=== PATIENT | male | born 1955 | race Caucasian/White ===

== ENCOUNTER 2016-12-14 15:52 | Inpatient (IN) | payer OTHER ==
[2016-12-14 16:04] VITALS: BMI 26.4
[2016-12-14] MEDS ORDERED: ONDANSETRON 4 MG/2 ML VIAL IVPB ONE (16:55)
[2016-12-14] MEDS ORDERED: SODIUM CHLORIDE 0.9% 1000 ML INFUS.BAG IV ONE (16:55)
[2016-12-14] MEDS ORDERED: morphine CARPU-JECT 4 MG/1 ML DISP.SYRIN ONE (17:18)
[2016-12-14] MEDS ORDERED: ONDANSETRON 4 MG/2 ML VIAL ONE (17:26)
[2016-12-14] MEDS: morphine CARPU-JECT 4 MG/1 ML DISP.SYRIN IVPUSH ONE ×2 (17:32→21:48)
[2016-12-14 17:35] LABS: MCH 31.1 pg (25.7-33.7); MCHC 34.7 g/dl (32.0-35.9); MEAN CELL VOLUME 89.5 fl (80-96); MEAN PLT VOLUME 8.4 fl (7.5-11.1); PLATELET COUNT 270 K/MM3 (134-434); WHITE BLOOD COUNT 7.4 K/mm3 (4.0-10.0)
[2016-12-14 17:50] LABS: INR 1.09 (0.82-1.09)
--- NOTE | 2016-12-14 18:08 | PDOC ---
[id number] [id number] LOWER BACK PAIN Time Seen by Provider: 12/14/16 16:21 History Source: Patient, [employer] Used (Suresh [id number]) Exam Limitations: Language Barrier - History of Present Illness Initial Comments: 12/14/16 18:01 61 yr male history of CAD with stent placed 2003 presents to ER with low back pain radiates to flank, lower abdomen both sides for 3 days getting worse. Pain worse with walking, movement, stabbing pain. denies fever, denies saddle anesthesia, denies urine or bowel dysfunction. Severity: reports: moderate Pain Location: reports: back Past History - Past Medical History Allergies/Adverse Reactions: Allergies Allergy/AdvReac Type Severity Reaction Status Date / Time Penicillins Allergy Verified 12/14/16 16:04 Kidney Stones: Yes Other medical history: DENIES - Surgical History Cardiac Surgery: Yes (CATH) - Psycho/Social/Smoking Cessation Hx Anxiety: No Suicidal Ideation: No Smoking History: Never smoked Have you smoked in the past 12 months: No Information on smoking cessation initiated: No Hx Alcohol Use: No Drug/Substance Use Hx: No Substance Use Type: None *Physical Exam - Vital Signs Last Vital Signs Temp Pulse Resp BP Pulse Ox 98.2 F 74 20 128/85 98 12/14/16 15:55 12/14/16 15:55 12/14/16 15:55 12/14/16 15:55 12/14/16 15:55 - Physical Exam General Appearance: Yes: Nourished, Appropriately Dressed, Mild Distress HEENT: positive: EOMI, ZAKIYA, Normal ENT Inspection, TMs Normal, Pharynx Normal Neck: positive: Supple. negative: Tender Respiratory/Chest: positive: Chest Tender, Lungs Clear, Normal Breath Sounds Cardiovascular: positive: Regular Rhythm, Regular Rate Gastrointestinal/Abdominal: positive: Normal Bowel Sounds, Soft Musculoskeletal: positive: Normal Inspection, Other. negative: CVA Tenderness ( R) Extremity: positive: Normal Capillary Refill, Normal Inspection, Normal Range of Motion, Other (bilateral low back pain with straight leg raise ) Integumentary: positive: Normal Color, Dry, Warm Neurologic: positive: Fully Oriented, Alert, Normal Mood/Affect, Normal Response , Motor Strength 5/5 ED Treatment Course - LABORATORY CBC & Chemistry Diagram: 12/15/16 05:36 12/16/16 05:55 - ADDITIONAL ORDERS Additional order review: Laboratory Results 12/14/16 12/14/16 17:00 17:00 INR 1.09 Sodium Cancelled Potassium Cancelled Chloride Cancelled Carbon Dioxide Cancelled Anion Gap Cancelled BUN Cancelled Creatinine Cancelled Creat Clearance w eGFR Cancelled Random Glucose Cancelled Calcium Cancelled Total Bilirubin Cancelled AST Cancelled ALT Cancelled Alkaline Phosphatase Cancelled Total Protein Cancelled Albumin Cancelled 12/14/16 17:00 RBC 4.86 MCV 89.5 MCHC 34.7 RDW 13.0 MPV 8.4 - RADIOLOGY Radiology Studies Ordered: Category Date Time Status ABDOMEN & PELVIS CT W/O CONTR [CT] Stat CT Scan 12/14/16 17:01 Taken - Medications Given in the ED: ED Medications Discontinued Medications Generic Name Dose Route Start Last Admin Trade Name Freq PRN Reason Stop Dose Admin Ondansetron HCl 4 mg 12/14/16 16:55 12/14/16 17:31 Zofran Injection IVPB 12/14/16 16:56 4 mg ONCE ONE Administration Sodium Chloride 1,000 ml 12/14/16 16:55 12/14/16 17:30 Normal Saline - IV 12/14/16 16:56 1,000 ml ONCE ONE Administration Medical Decision Making - Medical Decision Making 12/14/16 18:51 cc: low back pain radiates to bilateral flank and lower abdomen will r/o AAA, kidney stone, pyleo, muscle spasm, muscle strain labs, CT without contrast, IV morphine, fluids, will hold on toradol for CT result 12/14/16 19:39 pt began to c/o LSCP pressure after troadol was given. EKG done shown to discussed case and will assume care in the Main ER. Pt aware of the plan. Charge nurse Saji aware and pt is going to bed 2. 12/14/16 20:34 *DC/Admit/Observation/Transfer Diagnosis at time of Disposition: Acute coronary syndrome - Discharge Dispostion Admit: Yes - Referrals
[2016-12-14 18:39] LABS: MCH 30.3 pg (25.7-33.7); MCHC 33.7 g/dl (32.0-35.9); MEAN CELL VOLUME 89.8 fl (80-96); MEAN PLT VOLUME 8.2 fl (7.5-11.1); PLATELET COUNT 263 K/MM3 (134-434); RDW 13.2 % (11.9-15.9)
[2016-12-14] MEDS ORDERED: KETOROLAC TROMETHAMINE 30 MG/1 ML VIAL IVPUSH ONE (18:40)
[2016-12-14 18:52] LABS: INR 1.12 (0.82-1.09); PROTHROMBIN TIME (PATIENT) 12.4 SEC (9.98-11.88)
[2016-12-14 19:03] LABS: ALBUMIN 3.8 g/dl (3.4-5.0); ALK PHOS 100 U/L (45-117); ANION GAP 9 (8-16); BILIRUBIN,TOTAL 0.3 mg/dL (0.2-1.0); CALCIUM 8.7 mg/dL (8.5-10.1); CO2 25 mmol/L (21-32); CREATININE 0.8 mg/dL (0.7-1.3); GLUCOSE,RANDOM 91 mg/dL (74-106); SGOT/AST 23 U/L (15-37); TOT PROT 6.5 g/dl (6.4-8.2); TROPONIN I 0.09 ng/ml (0.00-0.05)
[2016-12-14 19:08] LABS: SGPT/ALT 24 U/L (12-78)
[2016-12-14] MEDS ORDERED: KETOROLAC TROMETHAMINE 30 MG/1 ML VIAL ONE (19:18)
[2016-12-14 19:26] LABS: URINE APPEARANCE CLEAR; URINE BILIRUBIN NEGATIVE (NEGATIVE); URINE BLOOD NEGATIVE (NEGATIVE); URINE COLOR STRAW; URINE GLUCOSE (UA) NEGATIVE (NEGATIVE); URINE KETONE NEGATIVE (NEGATIVE); URINE LEUK ESTERASE NEGATIVE (NEGATIVE); URINE NITRITE NEGATIVE (NEGATIVE); URINE PROTEIN NEGATIVE (NEGATIVE); URINE UROBILINOGEN NEGATIVE E.U./dl (0.2-1.0)
--- NOTE | 2016-12-14 19:49 | PDOC ---
ED Treatment Course - LABORATORY CBC & Chemistry Diagram: 12/14/16 18:30 12/14/16 18:30 - ADDITIONAL ORDERS Additional order review: Laboratory Results 12/14/16 12/14/16 12/14/16 18:30 18:30 18:30 INR 1.12 Sodium 143 Potassium 3.9 Chloride 109 H Carbon Dioxide 25 Anion Gap 9 BUN 16 Creatinine 0.8 Creat Clearance w eGFR > 60 Random Glucose 91 Calcium 8.7 Total Bilirubin 0.3 AST 23 ALT 24 Alkaline Phosphatase 100 Creatine Kinase 102 Troponin I 0.09 H Total Protein 6.5 Albumin 3.8 Urine Color Urine Appearance Urine pH Ur Specific [place] Urine Protein Urine Glucose (UA) Urine Ketones Urine Blood Urine Nitrite Urine Bilirubin Urine Urobilinogen Ur Leukocyte Esterase Blood Type Antibody Screen 12/14/16 12/14/16 12/14/16 18:24 17:00 17:00 INR Sodium Cancelled Potassium Cancelled Chloride Cancelled Carbon Dioxide Cancelled Anion Gap Cancelled BUN Cancelled Creatinine Cancelled Creat Clearance w eGFR Cancelled Random Glucose Cancelled Calcium Cancelled Total Bilirubin Cancelled AST Cancelled ALT Cancelled Alkaline Phosphatase Cancelled Creatine Kinase Troponin I Total Protein Cancelled Albumin Cancelled Urine Color Straw Urine Appearance Clear Urine pH 6.0 Ur Specific [place] 1.010 Urine Protein Negative Urine Glucose (UA) Negative Urine Ketones Negative Urine Blood Negative Urine Nitrite Negative Urine Bilirubin Negative Urine Urobilinogen Negative Ur Leukocyte Esterase Negative Blood Type O POSITIVE Antibody Screen Negative 12/14/16 17:00 INR 1.09 Sodium Potassium Chloride Carbon Dioxide Anion Gap BUN Creatinine Creat Clearance w eGFR Random Glucose Calcium Total Bilirubin AST ALT Alkaline Phosphatase Creatine Kinase Troponin I Total Protein Albumin Urine Color Urine Appearance Urine pH Ur Specific [place] Urine Protein Urine Glucose (UA) Urine Ketones Urine Blood Urine Nitrite Urine Bilirubin Urine Urobilinogen Ur Leukocyte Esterase Blood Type Antibody Screen 12/14/16 12/14/16 18:30 17:00 RBC 4.56 4.86 MCV 89.8 89.5 MCHC 33.7 34.7 RDW 13.2 13.0 MPV 8.2 8.4 - Medications Given in the ED: ED Medications Discontinued Medications Generic Name Dose Route Start Last Admin Trade Name Freq PRN Reason Stop Dose Admin Ketorolac Tromethamine 30 mg 12/14/16 18:40 12/14/16 19:27 Toradol Injection - IVPUSH 12/14/16 18:41 30 mg ONCE ONE Administration Ondansetron HCl 4 mg 12/14/16 16:55 12/14/16 17:31 Zofran Injection IVPB 12/14/16 16:56 4 mg ONCE ONE Administration Sodium Chloride 1,000 ml 12/14/16 16:55 12/14/16 17:30 Normal Saline - IV 12/14/16 16:56 1,000 ml ONCE ONE Administration Progress Note - Progress Note Progress Note: I have received report from KYLE Olmos regarding this patient. Pt's initial chief complaint: low back pain radiating to b/l flanks for 3 days Pt's work up completed prior to sign out: labs, UA, type and screen, EKG, Abd/ pelvis CT Pt treatment given from prior staff: IV morphine, toradol, IV fluids, zofran Pt plan to be completed: Awaiting repeat troponin in 4 hours Dispo: Pending Medical Decision Making - Medical Decision Making A/P: 61 y/o male with worsening low back pain radiating to b/l flanks over past 3 days. The patient was initially assessed in [facility]. He was found to have b/l kidney stones, as well as an elevated troponin. He was sent over to main ER for repeat troponin. *DC/Admit/Observation/Transfer Diagnosis at time of Disposition: Kidney stones - Referrals Referrals: Alfonzo Chauhan MD [Staff Physician] - - Patient Instructions - Post Discharge Activity
[2016-12-14] MEDS ORDERED: ASPIRIN 81 MG CHEWABLE TABLETS ONE (20:11)
[2016-12-14] MEDS ORDERED: NITROGLYCERIN SUBLINGUAL 1/150 0.4 MG TAB SL ONE (20:11)
[2016-12-14] MEDS ORDERED: ASPIRIN 325 MG TABLET PO ONE (20:11)
[2016-12-14] MEDS ORDERED: NITROGLYCERIN SUBLINGUAL 1/150 0.4 MG TAB ONE (20:14)
[2016-12-14] MEDS ORDERED: NITROGLYCERIN 2% OINTMENT - 1GM PACKET TD ONE (21:30)
[2016-12-14] MEDS ORDERED: OXYCODONE/APAP 5/325MG COMBO TABLET PO ONE (21:37)
[2016-12-14] MEDS ORDERED: OXYCODONE/APAP 5/325MG COMBO TABLET ONE (21:37)
[2016-12-14] MEDS ORDERED: ACETAMINOPHEN 500 MG TABLET (FP) ONE (22:10)
[2016-12-14] MEDS ORDERED: ACETAMINOPHEN 500 MG TABLET (FP) PO ONE (22:12)
--- NOTE | 2016-12-14 22:27 | PDOC ---
History of Present Illness - General Chief Complaint: Back Pain Stated Complaint: LOWER BACK PAIN Time Seen by Provider: 12/14/16 16:21 History Source: Patient, [employer] ([employer]uresh [id number]) - History of Present Illness Initial Comments: 12/14/16 22:23 Patient is a 61-year-old male with history of coronary artery disease, status post stenting in 2002 with initially seen in fast track for atraumatic bilateral flank pain and was diagnosed with a recently passed renal stone and several nonobstructing bilateral renal stones. Upon evaluation, patient started complaining of atraumatic, nonpleuritic left-sided chest pressure which she described as 5 of 10 in severity with associated shortness of breath and palpitations. EKG was performed and patient was transferred to the main ER. Patient reports that his symptoms are similar in nature to the chest pressure he felt prior to the cardiac catheter and coronary stenting. Patient denies fevers/chills/lower extremity edema/cough. REVIEW OF SYSTEMS CONSTITUTIONAL: No fever, no chills, no fatigue EYES: No visual changes ENT: No ear pain, no sore throat CARDIOVASCULAR: No chest pain, no palpitations RESPIRATORY: No cough, no SOB GI: No abdominal pain, no nausea, no vomiting, no constipation, no diarrhea GENITOURINARY: No dysuria, no frequency, no hematuria MUSKULOSKELETAL: No backpain, no joint pain, no myalgias SKIN: No rash NEURO: No headache EXAMINATION CONSTITUTIONAL: Well-appearing; well-nourished; in no apparent distress HEAD: Normocephalic; atraumatic EYES: PERRL; EOM intact ENMT: External appears normal; normal oropharynx NECK: Supple; non-tender; no cervical lymphadenopathy CARD: Normal S1, S2; no murmurs, rubs, or gallops RESP: Normal chest excursion with respiration; breath sounds clear and equal bilaterally; no wheezes, rhonchi, or rales ABD: Soft, non-distended; non-tender; no palpable organomegaly, no palpable hernias EXT: Normal ROM in all four extremities; non-tender to palpation; distal pulses intact SKIN: Warm, dry, no rash NEURO: No focal neurological deficiencies. Past History - Past Medical History Allergies/Adverse Reactions: Allergies Allergy/AdvReac Type Severity Reaction Status Date / Time Penicillins Allergy Verified 12/14/16 16:04 Kidney Stones: Yes Other medical history: DENIES - Surgical History Cardiac Surgery: Yes (CATH) - Psycho/Social/Smoking Cessation Hx Anxiety: No Suicidal Ideation: No Smoking History: Never smoked Have you smoked in the past 12 months: No Information on smoking cessation initiated: No Hx Alcohol Use: No Drug/Substance Use Hx: No Substance Use Type: None *Physical Exam - Vital Signs Last Vital Signs Temp Pulse Resp BP Pulse Ox 98.2 F 67 18 106/76 97 12/14/16 15:55 12/14/16 21:05 12/14/16 21:05 12/14/16 21:05 12/14/16 21:05 Heart Score/ECG Review - History History: Moderately suspicious - Electrocardiogram EKG: Non specific repolarization disturbance - Age Age: 45-65 - Risk Factors Based on the list above the patient has:: 1-2 risk factors - Troponin Troponin: 1-3x normal limit - Score Heart Score - Total: 5 - ECG Intrepretation Comment:: 12/14/16 22:25 60, normal sinus rhythm, axis-left axis deviation, RBBB, left anterior fascicular block, T-wave inversions in 3 and aVF, abnormal EKG. ED Treatment Course - LABORATORY CBC & Chemistry Diagram: 12/14/16 18:30 12/14/16 18:30 - ADDITIONAL ORDERS Additional order review: Laboratory Results 12/14/16 12/14/16 12/14/16 18:30 18:30 18:30 INR 1.12 Sodium 143 Potassium 3.9 Chloride 109 H Carbon Dioxide 25 Anion Gap 9 BUN 16 Creatinine 0.8 Creat Clearance w eGFR > 60 Random Glucose 91 Calcium 8.7 Total Bilirubin 0.3 AST 23 ALT 24 Alkaline Phosphatase 100 Creatine Kinase 102 Troponin I 0.09 H Total Protein 6.5 Albumin 3.8 Urine Color Urine Appearance Urine pH Ur Specific [place] Urine Protein Urine Glucose (UA) Urine Ketones Urine Blood Urine Nitrite Urine Bilirubin Urine Urobilinogen Ur Leukocyte Esterase Blood Type Antibody Screen 12/14/16 12/14/16 12/14/16 18:24 17:00 17:00 INR Sodium Cancelled Potassium Cancelled Chloride Cancelled Carbon Dioxide Cancelled Anion Gap Cancelled BUN Cancelled Creatinine Cancelled Creat Clearance w eGFR Cancelled Random Glucose Cancelled Calcium Cancelled Total Bilirubin Cancelled AST Cancelled ALT Cancelled Alkaline Phosphatase Cancelled Creatine Kinase Troponin I Total Protein Cancelled Albumin Cancelled Urine Color Straw Urine Appearance Clear Urine pH 6.0 Ur Specific [place] 1.010 Urine Protein Negative Urine Glucose (UA) Negative Urine Ketones Negative Urine Blood Negative Urine Nitrite Negative Urine Bilirubin Negative Urine Urobilinogen Negative Ur Leukocyte Esterase Negative Blood Type O POSITIVE Antibody Screen Negative 12/14/16 17:00 INR 1.09 Sodium Potassium Chloride Carbon Dioxide Anion Gap BUN Creatinine Creat Clearance w eGFR Random Glucose Calcium Total Bilirubin AST ALT Alkaline Phosphatase Creatine Kinase Troponin I Total Protein Albumin Urine Color Urine Appearance Urine pH Ur Specific [place] Urine Protein Urine Glucose (UA) Urine Ketones Urine Blood Urine Nitrite Urine Bilirubin Urine Urobilinogen Ur Leukocyte Esterase Blood Type Antibody Screen 12/14/16 12/14/16 18:30 17:00 RBC 4.56 4.86 MCV 89.8 89.5 MCHC 33.7 34.7 RDW 13.2 13.0 MPV 8.2 8.4 - RADIOLOGY Radiology Studies Ordered: Category Date Time Status CHEST X-RAY PORTABLE* [RAD] Stat Radiology 12/14/16 20:11 Completed - Medications Given in the ED: ED Medications Discontinued Medications Generic Name Dose Route Start Last Admin Trade Name Freq PRN Reason Stop Dose Admin Acetaminophen 500 mg 12/14/16 22:12 12/14/16 22:13 Tylenol - PO 12/14/16 22:13 500 mg NOW ONE Administration Aspirin 325 mg 12/14/16 20:11 12/14/16 20:17 Asa - PO 12/14/16 20:12 325 mg ONCE ONE Administration Ketorolac Tromethamine 30 mg 12/14/16 18:40 12/14/16 19:27 Toradol Injection - IVPUSH 12/14/16 18:41 30 mg ONCE ONE Administration Morphine Sulfate 4 mg 12/14/16 16:55 12/14/16 21:48 Morphine Injection - IVPUSH 12/14/16 16:56 Not Given ONCE ONE Nitroglycerin 0.4 mg 12/14/16 20:11 12/14/16 20:17 Nitrostat - SL 12/14/16 20:12 0.4 mg ONCE ONE Administration Ondansetron HCl 4 mg 12/14/16 16:55 12/14/16 17:31 Zofran Injection IVPB 12/14/16 16:56 4 mg ONCE ONE Administration Oxycodone/Acetaminophen 1 combo 12/14/16 21:37 12/14/16 21:39 Percocet 5/325 - PO 12/14/16 21:38 1 combo ONCE ONE Administration Sodium Chloride 1,000 ml 12/14/16 16:55 12/14/16 17:30 Normal Saline - IV 12/14/16 16:56 1,000 ml ONCE ONE Administration Medical Decision Making - Medical Decision Making 12/14/16 22:25 Patient is 61-year-old male with history of CAD who presents with atraumatic chest pressure, relieved by sublingual nitroglycerin and an abnormal EKG showing T-wave inversions in 3 and aVF (aVF T inversion appears new when compared to EKG from 2002; patient's heart score is noted to be 6. Patient received aspirin and transdermal nitroglycerin. Will hold beta armin due to risk of bradycardia. Will admit to inpatient telemetry further evaluation and treatment. *DC/Admit/Observation/Transfer Diagnosis at time of Disposition: Acute coronary syndrome - Discharge Dispostion Condition at time of disposition: Fair Admit: Yes - Referrals Referrals: Alfonzo Chauhan MD [Staff Physician] - - Patient Instructions - Post Discharge Activity
--- NOTE | 2016-12-14 23:06 | PN ---
<Rosetta Quintero - Last Filed: 12/15/16 02:10> Teaching Attending Note ATTENDING PHYSICIAN STATEMENT I saw and evaluated the patient. I reviewed the resident's note and discussed the case with the resident. I agree with the resident's findings and plan as documented. SUBJECTIVE: The patient is a 61 yo M with a PMHx of CAD s/p stents (2003) and Kidney stones who presents with lower back pain and L sided chest pain. The patient states the lower back pain began 3 days ago and reports it is nonradiating, exacerbated with movement however alleviated laying supine. He reports increased urinary frequency, urgency and dysuria however denies hematuria. The patient also reports subjective fever however denies chills, rigors or diaphoresis. The patient endorses L sided chest pain, nonradiating, 8/10 in severity since last night. The patient states his symptoms are similar when he underwent cardiac catherization and presents here for further evaluation. OBJECTIVE: Physical Last Vital Signs Temp Pulse Resp BP Pulse Ox 98.2 F 59 L 18 92/65 98 12/14/16 15:55 12/14/16 23:14 12/14/16 23:14 12/14/16 23:14 12/14/16 23:14 GENERAL: Awake, alert, and fully oriented, in no acute distress HEENT: Atraumatic. PERRLA, EOMI. Moist mucosa. No JVD LUNGS: No distress, speaks full sentences, clear to auscultation bilaterally HEART: Regular rate and rhythm, normal S1 and S2, no murmurs, rubs or gallops, peripheral pulses normal and equal bilaterally. ABDOMEN: + Suprapubic tenderness. Soft, nontender, normoactive bowel sounds. No guarding, no rebound. No masses EXTREMITIES: Normal inspection, Normal range of motion, no edema. No clubbing or cyanosis. NEUROLOGICAL: Cranial nerves II through XII grossly intact. Normal speech, normal gait, no focal sensorimotor deficits SKIN: Warm, Dry, normal turgor, no rashes or lesions noted. CBCD WBC 7.0 K/mm3 (4.0-10.0) 12/14/16 18:30 RBC 4.56 M/mm3 (4.00-5.60) 12/14/16 18:30 Hgb 13.8 GM/dL (11.7-16.9) 12/14/16 18:30 Hct 41.0 % (35.4-49) 12/14/16 18:30 MCV 89.8 fl (80-96) 12/14/16 18:30 MCHC 33.7 g/dl (32.0-35.9) 12/14/16 18:30 RDW 13.2 % (11.9-15.9) 12/14/16 18:30 Plt Count 263 K/MM3 (134-434) 12/14/16 18:30 MPV 8.2 fl (7.5-11.1) 12/14/16 18:30 CMP Sodium 143 mmol/L (136-145) 12/14/16 18:30 Potassium 3.9 mmol/L (3.5-5.1) 12/14/16 18:30 Chloride 109 mmol/L (98-107) H 12/14/16 18:30 Carbon Dioxide 25 mmol/L (21-32) 12/14/16 18:30 Anion Gap 9 (8-16) 12/14/16 18:30 BUN 16 mg/dL (7-18) 12/14/16 18:30 Creatinine 0.8 mg/dL (0.7-1.3) 12/14/16 18:30 Creat Clearance w eGFR > 60 (>60) 12/14/16 18:30 Calcium 8.7 mg/dL (8.5-10.1) 12/14/16 18:30 Total Bilirubin 0.3 mg/dL (0.2-1.0) 12/14/16 18:30 AST 23 U/L (15-37) 12/14/16 18:30 ALT 24 U/L (12-78) 12/14/16 18:30 Alkaline Phosphatase 100 U/L (45-117) 12/14/16 18:30 Total Protein 6.5 g/dl (6.4-8.2) 12/14/16 18:30 Albumin 3.8 g/dl (3.4-5.0) 12/14/16 18:30 Imaging: Abdomen/ Pelvis CT Impression: Tiny nonobstructing left and right renal stone. Mild dilatation of the right renal pelvis and proximal right ureter without gross evidence of a ureteral stone. Cannot rule out recent passage of a stone. Slightly over distended urinary bladder without wall thickening or intraluminal stones. Gallstones Enlarged prostate gland. Fat-containing right and left inguinal hernia. There is no evidence of aneurysmal dilatation of the abdominal aorta. ASSESSMENT AND PLAN: The patient is a 61 yo M with a PMHX of CAD and Kidney stones who presents with Lower back pain and L sided chest pain. 1.) Chest Pain r/o ACLS - start on asp and plavix. statin and COREG 25 mg BID - cardiac enzymes, trend - Tele monitoring - Echo - Cardio consult - Consider stress test 2.) R/o BPG vs nephrolithiasis - Continue morphine 2 mg Q6 PRN for pain control - Flomax - IVF 100 cc/hr - Digital rectal exam - consider urology consult Documentation prepared by Rosetta Quintero, acting as medical lab specialist for Cherry Hinojosa MD. <Cherry Hinojosa - Last Filed: 12/16/16 00:08> Teaching Attending Note Name of Resident: Tomeka Olmedo
[2016-12-14] MEDS ORDERED: TAMSULOSIN HCL 0.4 MG CAP.ER.24H (FP) PO ONE (23:11)
[2016-12-14] MEDS ORDERED: TAMSULOSIN HCL 0.4 MG CAP.ER.24H (FP) ONE (23:15)
[2016-12-14] MEDS ORDERED: NITROGLYCERIN SUBLINGUAL 1/150 0.4 MG TAB SL PRN (23:37)
[2016-12-14] MEDS ORDERED: morphine CARPU-JECT 2 MG/1 ML DISP.SYRIN IVPUSH PRN (23:41)
[2016-12-14] MEDS ORDERED: ATORVASTATIN CA 20 MG TABLET (FP) PO SCH (23:45)
--- NOTE | 2016-12-14 23:45 | HP ---
CHIEF COMPLAINT: Low back pain PCP: None. Would like to get a PCP HISTORY OF PRESENT ILLNESS: 61 year old tamazight speaking male presented to the ED accompanied with his with the chief complaint of severe low back pain. A/c to the patient, he developed low back pain 3 days ago, started suddenly, progressively getting worse, 10/10 in intensity, non radiating, not associated with any other symptoms. Aggravated on bending, walking, slight relief on lying down. Patient took Advil without symptomatic relief. Initially, he was able to urinate but since yesterday started having burning urination, increased in frequency, intermittent flow of urine, straining of urine +, no incontinence, no blood in urine noticed. Also mentions of suprapubic pain. Denies nausea, vomiting, fever , chills, rigors or sweating. Bowel habit normal. Appetite decreased. Sleep disturbed. Gives h/o kidney stone in the past and passed the stone with IV fluid treatment only, no invasive procedure was done. Patient also reports to have one episode of chest pain last night, lasting for about few hours, relieved at rest. Initially, when he presented he didn't have chest pain but later during the treatment in the ED, he had left sided chest pain, sharp in quality, non radiating 8/10 in intensity, not associated with any other symptoms. Denies sob, cough, palpitation. He was given Nitroglycerine which relieved chest pain immediately. Patient mentions he had similar episode in 2003 after which cath was done with stent placement (doesn't know how many stents were placed). ER course was notable for: (1) CBC, CMP, Troponin x 1 positive (2) CXR, EKG (3) Aspirin 325, Morphine, Ketorolac, IVF, Nitroglycerine, Percocet Recent Travel: None PAST MEDICAL HISTORY: CAD s/p stent in 2003, Kidney stone (12 yrs ago) PAST SURGICAL HISTORY: mentioned above Social History: Smoking: Never smoked Alcohol: Never took alcohol Drugs: No illicit drug use Family History: Unknown Allergies Penicillins Allergy (Verified 12/14/16 16:04) HOME MEDICATIONS: REVIEW OF SYSTEMS CONSTITUTIONAL: Absent: fever, chills, diaphoresis, generalized weakness, malaise, loss of appetite, weight change HEENT: Absent: rhinorrhea, nasal congestion, throat pain, throat swelling, difficulty swallowing, mouth swelling, ear pain, eye pain, visual changes CARDIOVASCULAR: Present: Chest pain Absent: syncope, palpitations, irregular heart rate, lightheadedness, peripheral edema RESPIRATORY: Absent: cough, shortness of breath, dyspnea with exertion, orthopnea, wheezing, stridor, hemoptysis GASTROINTESTINAL: Present: Suprapubic pain Absent: abdominal pain, abdominal distension, nausea, vomiting, diarrhea, constipation, melena, hematochezia GENITOURINARY: Present: dysuria, frequency, urgency, hesitancy, flank pain Absent: , hematuria, genital pain MUSCULOSKELETAL: Present: Back pain Absent: myalgia, arthralgia, joint swelling, neck pain SKIN: Absent: rash, itching, pallor HEMATOLOGIC/IMMUNOLOGIC: Absent: easy bleeding, easy bruising, lymphadenopathy, frequent infections ENDOCRINE: Absent: unexplained weight gain, unexplained weight loss, heat intolerance, cold intolerance NEUROLOGIC: Absent: headache, focal weakness or paresthesias, dizziness, unsteady gait, seizure, mental status changes, bladder or bowel incontinence PSYCHIATRIC: Absent: anxiety, depression, suicidal or homicidal ideation, hallucinations. PHYSICAL EXAMINATION Vital Signs - 24 hr 12/14/16 12/14/16 12/14/16 15:55 20:18 21:05 Temperature 98.2 F Pulse Rate 74 Pulse Rate [ 63 67 Apical] Respiratory 20 18 18 Rate Blood Pressure 128/85 Blood Pressure 114/78 106/76 [Left Arm] O2 Sat by Pulse 98 99 97 Oximetry (%) 12/14/16 23:14 Temperature Pulse Rate Pulse Rate [ 59 L Apical] Respiratory 18 Rate Blood Pressure Blood Pressure 92/65 [Left Arm] O2 Sat by Pulse 98 Oximetry (%) GENERAL: Patient comfortably lying in bed, Awake, alert, and fully oriented, in no acute distress. HEAD: Normal with no signs of trauma. EYES: EOM intact, no pallor or icterus EARS, NOSE, THROAT: Ears normal. Moist mucous membranes. NECK: Normal range of motion, supple without lymphadenopathy, JVD, or masses. LUNGS: Breath sounds equal, clear to auscultation bilaterally. No wheezes, and no crackles. No accessory muscle use. HEART: Regular rate and rhythm, normal S1 and S2 without murmur, rub or gallop. ABDOMEN: Soft, tenderness over the suprapubic region, not distended, normoactive bowel sounds, no guarding, no rebound, no masses. No hepatomegaly or splenomegaly. No CVA tenderness MUSCULOSKELETAL: Normal range of motion at all joints. No bony deformities or tenderness. UPPER EXTREMITIES: 2+ pulses, warm, well-perfused. No cyanosis. No clubbing. Cap refill <2 seconds. No peripheral edema. LOWER EXTREMITIES: 2+ pulses, warm, well-perfused. No calf tenderness. No peripheral edema. NEUROLOGICAL: Cranial nerves II-XII intact. Normal speech. Gait not observed. PSYCHIATRIC: Cooperative. Good eye contact. Appropriate mood and affect. SKIN: Warm, dry, normal turgor, no rashes or lesions noted. Laboratory Results - last 24 hr 12/14/16 12/14/16 12/14/16 17:00 17:00 17:00 WBC 7.4 RBC 4.86 Hgb 15.1 Hct 43.5 MCV 89.5 MCHC 34.7 RDW 13.0 Plt Count 270 MPV 8.4 INR 1.09 Sodium Cancelled Potassium Cancelled Chloride Cancelled Carbon Dioxide Cancelled Anion Gap Cancelled BUN Cancelled Creatinine Cancelled Creat Clearance w eGFR Cancelled Random Glucose Cancelled Calcium Cancelled Total Bilirubin Cancelled AST Cancelled ALT Cancelled Alkaline Phosphatase Cancelled Creatine Kinase Troponin I Total Protein Cancelled Albumin Cancelled Urine Color Urine Appearance Urine pH Ur Specific [place] Urine Protein Urine Glucose (UA) Urine Ketones Urine Blood Urine Nitrite Urine Bilirubin Urine Urobilinogen Ur Leukocyte Esterase Blood Type Antibody Screen 12/14/16 12/14/16 12/14/16 17:00 18:24 18:30 WBC RBC Hgb Hct MCV MCHC RDW Plt Count MPV INR Sodium 143 Potassium 3.9 Chloride 109 H Carbon Dioxide 25 Anion Gap 9 BUN 16 Creatinine 0.8 Creat Clearance w eGFR > 60 Random Glucose 91 Calcium 8.7 Total Bilirubin 0.3 AST 23 ALT 24 Alkaline Phosphatase 100 Creatine Kinase Troponin I Total Protein 6.5 Albumin 3.8 Urine Color Straw Urine Appearance Clear Urine pH 6.0 Ur Specific [place] 1.010 Urine Protein Negative Urine Glucose (UA) Negative Urine Ketones Negative Urine Blood Negative Urine Nitrite Negative Urine Bilirubin Negative Urine Urobilinogen Negative Ur Leukocyte Esterase Negative Blood Type O POSITIVE Antibody Screen Negative 12/14/16 12/14/16 12/14/16 18:30 18:30 18:30 WBC 7.0 RBC 4.56 Hgb 13.8 Hct 41.0 MCV 89.8 MCHC 33.7 RDW 13.2 Plt Count 263 MPV 8.2 INR 1.12 Sodium Potassium Chloride Carbon Dioxide Anion Gap BUN Creatinine Creat Clearance w eGFR Random Glucose Calcium Total Bilirubin AST ALT Alkaline Phosphatase Creatine Kinase 102 Troponin I 0.09 H Total Protein Albumin Urine Color Urine Appearance Urine pH Ur Specific [place] Urine Protein Urine Glucose (UA) Urine Ketones Urine Blood Urine Nitrite Urine Bilirubin Urine Urobilinogen Ur Leukocyte Esterase Blood Type Antibody Screen Imaging: Abdomen/ Pelvis CT Impression: Tiny nonobstructing left and right renal stone. Mild dilatation of the right renal pelvis and proximal right ureter without gross evidence of a ureteral stone. Cannot rule out recent passage of a stone. Slightly over distended urinary bladder without wall thickening or intraluminal stones. Gallstones Enlarged prostate gland. Fat-containing right and left inguinal hernia. There is no evidence of aneurysmal dilatation of the abdominal aorta. ASSESSMENT/PLAN: 61 year old tamazight speaking male with significant PMHx of CAD s/p stent in 2003 , kidney stone 12 yrs ago, presented to the ED accompanied with his with the chief complaint of severe low back pain. # Renal colic Patient presented with flank pain with urinary symptoms Has h/o renal stones On arrival, afebrile, no leukocytosis, ua normal Abd/Pelvis CT done, report mentioned as above Less likely pyelonephritis Patient on IV NS @ 100mls/hr Morphine 2mg Q6H PRN collect urine in urinal so we can monitor collection of the stone Urine culture pending Would consider urology consult # BPH Patient could have urinary symptoms due to BPH Flomax to be continued # Chest pain most likely due to demand ischemia- Chest pain resolved. Troponin 0.09--->0.08 trending down RBBB with t wave Inversion in lead 3, same changes as compared to old except t wave inversion now in avF. EKG from 2002 and todays attached in the chart. HEART Score-3, RYAN score 3 Patient received Aspirin 325mg, Morphine, Ketorolac, IVF, Nitroglycerine, Percocet Admitted in Tele Next troponin ordered for 6am Patient on Aspirin 81mg, Plavix 75mg, Statin 10mg Daily, Morphine 2mg PRN, Coreg 3.125mg, Nitroglycerine PRN Cardiology consult placed. Echo, EKG ordered tomorrow once stabilized consider stress test # FEN IV NS @ 100mls/hr Electrolytes to be repeated tomorrow Cholesterol controlled diet # Prophylaxis For DVT- Lovenox 40mg sq daily For GI- Not indicated # Code Status- Full Code # Dispo- Admitted in Tele. Duration of stay unknown Illness, Investigation and Plan of care explained to the patient. He verbalized understanding. Case discussed with Dr. Hinojosa. Visit type - Emergency Visit Emergency Visit: Yes ED Registration Date: 12/14/16 Care time: The patient presented to the Emergency Department on the above date and was hospitalized for further evaluation of their emergent condition. - New Patient This patient is new to me today: Yes Date on this admission: 12/14/16 - Critical Care Critical Care patient: No
[2016-12-15] MEDS: SODIUM CHLORIDE 1,000 ML IV SCH ×2 (00:26→22:39)
[2016-12-15] MEDS: CLOPIDOGREL BISULFATE 75 MG TABLET (FP) PO SCH ×3 (00:26→09:59)
[2016-12-15 01:20] LABS: TROPONIN I 0.08 ng/ml (0.00-0.05)
[2016-12-15] MEDS ORDERED: PT OWN MED DRAWER 7, Y5N ONE (07:22)
[2016-12-15 07:53] LABS: BASOPHIL 0.9 % (0-2.0); EOSINOPHIL 4.8 % (0-4.5); MCH 31.1 pg (25.7-33.7); MCHC 34.1 g/dl (32.0-35.9); MEAN CELL VOLUME 91.2 fl (80-96); MEAN PLT VOLUME 8.4 fl (7.5-11.1); PLATELET COUNT 212 K/MM3 (134-434); WHITE BLOOD COUNT 7.1 K/mm3 (4.0-10.0)
[2016-12-15 08:41] LABS: ALBUMIN 3.3 g/dl (3.4-5.0); ALK PHOS 85 U/L (45-117); ANION GAP 7 (8-16); BILIRUBIN,TOTAL 0.3 mg/dL (0.2-1.0); CALCIUM 8.4 mg/dL (8.5-10.1); CHOLESTEROL 153 mg/dL (50-200); CO2 29 mmol/L (21-32); CREATININE 0.9 mg/dL (0.7-1.3); GLUCOSE,RANDOM 75 mg/dL (74-106); LDL CHOLESTEROL (ONLY SJRH) 98 mg/dL (5-100); SGOT/AST 21 U/L (15-37); SGPT/ALT 22 U/L (12-78); TOT PROT 5.9 g/dl (6.4-8.2)
[2016-12-15 08:50] LABS: TROPONIN I 0.09 ng/ml (0.00-0.05)
[2016-12-15] MEDS: ENOXAPARIN NA (PORCINE) 40 MG/0.4 ML DISP.SYRIN SQ SCH (09:53)
[2016-12-15] MEDS: ASPIRIN COATED 81 MG TABLET.EC PO SCH (09:53)
[2016-12-15] MEDS: CARVEDILOL 3.125 MG TABLET (FP) PO SCH ×2 (09:54→09:59)
[2016-12-15] MEDS ORDERED: CLOPIDOGREL BISULFATE 75 MG TABLET (FP) PO SCH (10:00)
--- NOTE | 2016-12-15 10:35 | EKG ---
Test Reason : Blood Pressure : / mmHG Vent. Rate : 057 BPM Atrial Rate : 057 BPM P-R Int : 150 ms QRS Dur : 140 ms QT Int : 456 ms P-R-T Axes : 043 -59 -15 degrees QTc Int : 443 ms POOR DATA QUALITY, INTERPRETATION MAY BE ADVERSELY AFFECTED SINUS BRADYCARDIA RIGHT BUNDLE BRANCH BLOCK LEFT ANTERIOR FASCICULAR BLOCK BIFASCICULAR BLOCK LATERAL INFARCT (CITED ON OR BEFORE 14-DEC-2016) ABNORMAL ECG WHEN COMPARED WITH ECG OF 07-MAR-2003 21:53, (RBBB AND LEFT ANTERIOR FASCICULAR BLOCK) IS NOW PRESENT Confirmed by VIMAL OCONNOR MD ([id number]) on 12/15/2016 10:35:10 AM Referred By: Confirmed By:VIMAL OCONNOR MD
--- NOTE | 2016-12-15 10:47 | CON.CARD ---
Cardiology Consult (text) - Consultation Consultation Note: cc: flank pain b/l, cp hpi: 61 m hx possible cad (no mi or stents, per pt he had cath approx 2003 and was told he didn't need stent), here with flank pain b/l, cp. Pt had been having b/l flank pain so went to ER and found to have bl kidney stones. While in er also mentioned some cp while sitting at rest in er. CP is mild, left sided, squeezing, noticed it briefly just yesterday and today it's better. No radiation. No hx anginal sxs. No sob, palps, dizzy, loc, pnd, orthopnea, le edema. Main complaint now is bl flank pain. pmh: per hpi psh: cardiac cath social: no tob fam: no premature cad or scd ros: per hpi; no cough, nasal congestion, gaming, vision changes, n/v/d, muscle pain , hematuria, gib meds: only taking advil for flank pain pe: Vital Signs Period Temp Pulse Resp BP Sys/Phillips Pulse Ox Last 24 Hr 96.1 F-98.2 F 56-74 18-20 86-128/54-85 97-99 nad no jvd rrr s1s2 no mrg ctabl nl eff aaox3 no le e/c/c abd nt nd pos bs pos dp pt no carotid bruits no jaundice diaphoresis Laboratory Last Values WBC 7.1 K/mm3 (4.0-10.0) 12/15/16 05:36 RBC 4.43 M/mm3 (4.00-5.60) 12/15/16 05:36 Hgb 13.7 GM/dL (11.7-16.9) 12/15/16 05:36 Hct 40.4 % (35.4-49) 12/15/16 05:36 MCV 91.2 fl (80-96) 12/15/16 05:36 MCHC 34.1 g/dl (32.0-35.9) 12/15/16 05:36 RDW 13.0 % (11.9-15.9) 12/15/16 05:36 Plt Count 212 K/MM3 (134-434) 12/15/16 05:36 MPV 8.4 fl (7.5-11.1) 12/15/16 05:36 Neutrophils % 44.0 % (42.8-82.8) 12/15/16 05:36 Lymphocytes % 40.9 % (8-40) H 12/15/16 05:36 Monocytes % 9.4 % (3.8-10.2) 12/15/16 05:36 Eosinophils % 4.8 % (0-4.5) H 12/15/16 05:36 Basophils % 0.9 % (0-2.0) 12/15/16 05:36 INR 1.12 (0.82-1.09) 12/14/16 18:30 Sodium 145 mmol/L (136-145) 12/15/16 05:36 Potassium 4.9 mmol/L (3.5-5.1) D 12/15/16 05:36 Chloride 109 mmol/L (98-107) H 12/15/16 05:36 Carbon Dioxide 29 mmol/L (21-32) 12/15/16 05:36 Anion Gap 7 (8-16) L 12/15/16 05:36 BUN 16 mg/dL (7-18) 12/15/16 05:36 Creatinine 0.9 mg/dL (0.7-1.3) 12/15/16 05:36 Creat Clearance w eGFR > 60 (>60) 12/15/16 05:36 Random Glucose 75 mg/dL (74-106) 12/15/16 05:36 Hemoglobin A1c % 5.7 % (4.8-6.0) 12/15/16 05:36 Calcium 8.4 mg/dL (8.5-10.1) L 12/15/16 05:36 Total Bilirubin 0.3 mg/dL (0.2-1.0) 12/15/16 05:36 AST 21 U/L (15-37) 12/15/16 05:36 ALT 22 U/L (12-78) 12/15/16 05:36 Alkaline Phosphatase 85 U/L (45-117) 12/15/16 05:36 Creatine Kinase 94 IU/L (39-308) 12/15/16 05:36 Troponin I 0.09 ng/ml (0.00-0.05) H 12/15/16 05:36 Total Protein 5.9 g/dl (6.4-8.2) L 12/15/16 05:36 Albumin 3.3 g/dl (3.4-5.0) L 12/15/16 05:36 Triglycerides 179 mg/dL (35-160) H 12/15/16 05:36 Cholesterol 153 mg/dL (50-200) 12/15/16 05:36 Total LDL Cholesterol 98 mg/dL (5-100) 12/15/16 05:36 HDL Cholesterol 32 mg/dL (40-60) L 12/15/16 05:36 Urine Color Straw 12/14/16 18:24 Urine Appearance Clear 12/14/16 18:24 Urine pH 6.0 (5.0-8.0) 12/14/16 18:24 Ur Specific [place] 1.010 (1.001-1.035) 12/14/16 18:24 Urine Protein Negative (NEGATIVE) 12/14/16 18:24 Urine Glucose (UA) Negative (NEGATIVE) 12/14/16 18:24 Urine Ketones Negative (NEGATIVE) 12/14/16 18:24 Urine Blood Negative (NEGATIVE) 12/14/16 18:24 Urine Nitrite Negative (NEGATIVE) 12/14/16 18:24 Urine Bilirubin Negative (NEGATIVE) 12/14/16 18:24 Urine Urobilinogen Negative E.U./dl (0.2-1.0) 12/14/16 18:24 Ur Leukocyte Esterase Negative (NEGATIVE) 12/14/16 18:24 Blood Type O POSITIVE 12/14/16 17:00 Antibody Screen Negative 12/14/16 17:00 cxr: clear lungs ecg 12/14/16: sr, nl intervals, rbbb, no st changes, twi ii/avf, compared to prior ecg no sig change except for twi now in avf tele: sr a/p: 61 m hx possible cad (no mi or stents, per pt he had cath approx 2003 and was told he didn't need stent), here with flank pain b/l, cp. flank pain, kidney stones: -cont ivfs -plans per primary team +/- cp, possible cad hx, positive troponin: -Pt denies hx of NM or stents, said he had cath approx 2003 and was told he didn 't need stent, no further cath/stress testing since -here with episode of atypical cp, now improved -ecg w/o sig change from prior -trop in borderline range with flat trend and nl ck, not consistent with acs -can check echo, monitor on tele -would benefit from stress testing when acute kidney stone/flank pain issues resolved. inpt vs outpt depending on clinical course here -cont asa, no need for plavix at this time -was ordered for bb but holding due to low bp hypotension: -cont ivfs, hold coreg
--- NOTE | 2016-12-15 10:59 | PN ---
Physical Exam: SUBJECTIVE: Patient seen and examined at bedside. Pt c/o of back pain, flank pain radiating to genital region. He denies dysuria, SOB N/V/F/C currently. States the pain is 10/10. Is able to urinate currently. Has difficulty ambulating due to pain. He does not have chest pain at the moment. He does not follow with any doctors regularly. OBJECTIVE: Vital Signs Temperature 97.2 F L 12/15/16 08:24 Pulse Rate 58 L 12/15/16 08:24 Respiratory Rate 18 12/15/16 08:27 Blood Pressure 89/54 12/15/16 08:24 O2 Sat by Pulse Oximetry (%) 98 12/15/16 08:27 GENERAL: Patient comfortably lying in bed, Awake, alert, and fully oriented, in no acute distress. HEAD: Normal with no signs of trauma. EYES: EOM intact, no pallor or icterus EARS, NOSE, THROAT: Moist mucous membranes. NECK: Normal range of motion, supple without lymphadenopathy LUNGS: Breath sounds equal, clear to auscultation bilaterally. No wheezes, and no crackles. No accessory muscle use. HEART: Regular rate and rhythm, normal S1 and S2 without murmur, rub or gallop. ABDOMEN: Soft, tenderness over the suprapubic region, not distended, normoactive bowel sounds, no guarding, no rebound, no masses. No hepatomegaly or splenomegaly. B/L CVA tenderness. MUSCULOSKELETAL: Normal range of motion at all joints. No bony deformities or tenderness. LOWER EXTREMITIES: 2+ pulses, warm, well-perfused. No calf tenderness. No peripheral edema. NEUROLOGICAL: Normal speech. Gait not observed. PSYCHIATRIC: Cooperative. Good eye contact. Appropriate mood and affect. SKIN: Warm, dry, normal turgor, no rashes or lesions noted. Laboratory Results - last 24 hr 12/15/16 12/15/16 12/15/16 00:45 05:36 05:36 WBC 7.1 RBC 4.43 Hgb 13.7 Hct 40.4 MCV 91.2 MCHC 34.1 RDW 13.0 Plt Count 212 MPV 8.4 Neutrophils % 44.0 Lymphocytes % 40.9 H Monocytes % 9.4 Eosinophils % 4.8 H Basophils % 0.9 Sodium 145 Potassium 4.9 D Chloride 109 H Carbon Dioxide 29 Anion Gap 7 L BUN 16 Creatinine 0.9 Creat Clearance w eGFR > 60 Random Glucose 75 Hemoglobin A1c % Calcium 8.4 L Total Bilirubin 0.3 AST 21 ALT 22 Alkaline Phosphatase 85 Creatine Kinase 97 Troponin I 0.08 H Total Protein 5.9 L Albumin 3.3 L Triglycerides 179 H Cholesterol 153 Total LDL Cholesterol 98 HDL Cholesterol 32 L 12/15/16 12/15/16 05:36 05:36 WBC RBC Hgb Hct MCV MCHC RDW Plt Count MPV Neutrophils % Lymphocytes % Monocytes % Eosinophils % Basophils % Sodium Potassium Chloride Carbon Dioxide Anion Gap BUN Creatinine Creat Clearance w eGFR Random Glucose Hemoglobin A1c % 5.7 Calcium Total Bilirubin AST ALT Alkaline Phosphatase Creatine Kinase 94 Troponin I 0.09 H Total Protein Albumin Triglycerides Cholesterol Total LDL Cholesterol HDL Cholesterol Imaging: Abdomen/ Pelvis CT Impression: Tiny nonobstructing left and right renal stone. Mild dilatation of the right renal pelvis and proximal right ureter without gross evidence of a ureteral stone. Cannot rule out recent passage of a stone. Slightly over distended urinary bladder without wall thickening or intraluminal stones. Gallstones Enlarged prostate gland. Fat-containing right and left inguinal hernia. There is no evidence of aneurysmal dilatation of the abdominal aorta. Active Medications Generic Name Dose Route Start Last Admin Trade Name Freq PRN Reason Stop Dose Admin Aspirin 81 mg 12/15/16 10:00 12/15/16 09:53 Ecotrin - PO 81 mg DAILY [facility] Administration Atorvastatin Calcium 10 mg 12/14/16 23:50 Lipitor - PO HS NIL[facility] Enoxaparin Sodium 40 mg 12/14/16 10:00 12/15/16 09:53 Lovenox - SQ 40 mg DAILY [facility] Administration Sodium Chloride 1,000 mls @ 100 mls/hr 12/14/16 23:45 12/15/16 00:26 Normal Saline - IV 100 mls/hr ASDIR NIL[facility] Administration Morphine Sulfate 2 mg 12/15/16 10:05 Morphine Injection - IVPUSH Q4H PRN PAIN Nitroglycerin 0.4 mg 12/14/16 23:37 Nitrostat - SL Q5M PRN FOR CHEST PAIN ASSESSMENT/PLAN: 61 y/o M w/sig PMH of CAD s/p stent in 2003 (done in [facility]), kidney stones 12 years ago presented to ER with c/o low back pain. Admitted for renal colic secondary to nephrolithiasis most likely. -Nephrolithiasis -Hx of renal stones, UA negative, afebrile, back pain/flank pain radiating to groin. -Pyelonephritis less likely -CT abd: Tiny nonobstructing left and right renal stone. Mild dilatation of the right renal pelvis and proximal right ureter without gross evidence of a ureteral stone. Cannot rule out recent passage of a stone. -NS@100 ml/hr -Urology consulted -Pain control w/morphine iv 2mg q4h prn -UCx pending -BPH -as seen CT abd -started on flomax here, c/w flomax -could explain some of his issues with urination (weak stream, difficulty voiding completely at once). -Chest pain -no CP currently -trops 0.09-> 0.08-> 0.09 -Echo: LVSF normal, mild MR, mod to severe TR, RVSP elevated at 30-40 mmHg, mild pulmonic valve regurg, mod mitral annular calcification. -EKG from ER: sinus vilma, RBBB, L anterior fascicular block -Cardio on board -No events on monitoring tech in tele -FEN -NS@100ml/hr -f/u electrolytes in AM, mild hypercholeremia currently -cholesterol/fat controlled diet -DVT ppx -lovenox 40 mg sq qd -Dispo: -Monitor on floors. -Needs PCP and hospital insurance clerk upon discharge. Problem List - Problems (1) Kidney stones Code(s): N20.0 - CALCULUS OF KIDNEY (2) BPH (benign prostatic hyperplasia) Code(s): N40.0 - BENIGN PROSTATIC HYPERPLASIA WITHOUT LOWER URINRY TRACT SYMP (3) Chest pain Code(s): R07.9 - CHEST PAIN, UNSPECIFIED Visit type - Emergency Visit Emergency Visit: Yes ED Registration Date: 12/14/16 Care time: The patient presented to the Emergency Department on the above date and was hospitalized for further evaluation of their emergent condition. - New Patient This patient is new to me today: Yes Date on this admission: 12/15/16 - Critical Care Critical Care patient: No
--- NOTE | 2016-12-15 11:27 | PN ---
Teaching Attending Note Name of Resident: Fermín Thomas ATTENDING PHYSICIAN STATEMENT I saw and evaluated the patient. I reviewed the resident's note and discussed the case with the resident. I agree with the resident's findings and plan as documented. SUBJECTIVE: seen and evaluated at the bedside OBJECTIVE: right CVA tenderness ASSESSMENT AND PLAN: 61 year old man with CAD s/p stent in 2003 lost to follow up, Kidney stone (12 yrs ago) admitted for nephrolithiasis Nephrolithiasis -non-obstructing stones seen with mild dilation on the right indicating possible recent passage of obstructing stone -follow up urology consult -cont tamsulosin -cont IVF CAD -has very mildly elevated trop with no acute ischemic changes on EKG and no events on telemetry -cardiology consult greatly appreciated; agree that pt does not need emergent stress test at this time -follow up echo -no beta armin needed at this time as pt is bradycardic and BP is borderline -cont ASA -cont statin
--- NOTE | 2016-12-15 11:56 | MSN ---
Progress Note (SOAP) - Subjective Chief Complaint: Bilateral Flank Pain History of Present Illness: Patient was interviewed at bedside. He was eating breakfast and not appearing anxious. He complained of some headaches and dizziness. He is having bilateral flank pain and some dysuria. He also has complained of suprapubic pain. Patient denies any SOB, CP, Nausea, vomiting, diarrhea, weakness, constipation, incontinence, nor blood in stool or urine. - Current Medications Current Medications: Active Medications Aspirin (Ecotrin -) 81 mg PO DAILY [facility] Last Admin: 12/15/16 09:53 Dose: 81 mg Atorvastatin Calcium (Lipitor -) [address] [facility] Enoxaparin Sodium (Lovenox -) 40 mg SQ DAILY [facility] Last Admin: 12/15/16 09:53 Dose: 40 mg Sodium Chloride (Normal Saline -) 1,000 mls @ 100 mls/hr IV ASDIR [facility] Last Admin: 12/15/16 00:26 Dose: 100 mls/hr Morphine Sulfate (Morphine Injection -) 2 mg IVPUSH Q4H PRN PRN Reason: PAIN Nitroglycerin (Nitrostat -) 0.4 mg SL Q5M PRN PRN Reason: FOR CHEST PAIN - Objective Vital Signs: Vital Signs Temperature 97.2 F L 12/15/16 08:24 Pulse Rate 58 L 12/15/16 08:24 Respiratory Rate 18 12/15/16 08:27 Blood Pressure 89/54 12/15/16 08:24 O2 Sat by Pulse Oximetry (%) 98 12/15/16 08:27 Constitutional: Yes: Well Nourished, No Distress, Calm Eyes: Yes: WNL, Conjunctiva Clear, EOM Intact HENT: Yes: WNL, Atraumatic, Normocephalic Neck: Yes: WNL, Supple, Trachea Midline Cardiovascular: Yes: WNL, Regular Rate and Rhythm, S1, S2 Respiratory: Yes: WNL, Regular, CTA Bilaterally Gastrointestinal: Yes: Normal Bowel Sounds, Hernia, Tenderness. No: Rectal Bleeding, Splenomegaly, Tenderness, Epigastrium, Tenderness, Rebound, Vomiting Genitourinary: Yes: CVA Tenderness - Left, CVA Tenderness - Right, Polyuria. No : Gibbs Present, Incontinence, Oliguria Musculoskeletal: Yes: Back Pain. No: Muscle Weakness Extremities: Yes: WNL Neurological: Yes: WNL, Alert, Oriented ...Motor Strength: Yes: WNL Psychiatric: Yes: WNL, Alert, Oriented Labs Lab Results: CBC, BMP 12/15/16 05:36 12/15/16 05:36 Assessment/Plan patient is a 61 YO male with history of CAD, and nephrolithiasis. Due to the finding in the CT and the patients physical complaints nephrolithasis causing the flank pain is most likely. Nephrolithiasis -Fluids -Morphine Q4h -UA -Check urine for stones CP -Cardio Consult -Trend Trop. -Monitor EKG DVT -Lovenox GI -PPI
--- NOTE | 2016-12-15 12:54 | CONS ---
DATE OF CONSULTATION: HISTORY: The patient is a 61-year-old male followed in our office for prostatism and nephrolithiasis. He was last seen last month. He presents to the emergency room with his complaining of severe low back pain. The patient states the pain commenced 3 days prior to coming to the emergency room, which was acute in onset and has progressively gotten worse. He denies any radiation. It is aggravated by bending or moving. The patient was able to urinate with some difficulty and burning. He also has frequency, intermittency, and stranguria. He denies any hematuria. He also complains of suprapubic pain. He denies nausea or vomiting. The patient also reports 1 episode of chest pain the night prior to admission. This last several hours, and it was relieved by rest. Presently he denies any chest pain. He denies any shortness of breath, palpitations, or coughing. PAST MEDICAL HISTORY: He has undergone coronary artery stents in 2003. He does have history of a current kidney stone first diagnosed in 2004. SOCIAL HISTORY: He denies any ethanolism or tobacco. PHYSICAL EXAMINATION: Vital Signs: In the emergency room his blood pressure is 128/85, pulse oximetry 98, temperature 98, pulse 74. Genitourinary: Some suprapubic tenderness. His prostate is 3+, smooth, benign, and nontender. Extremities: There is 2+ pitting edema of his lower extremities. LABORATORY DATA: On admission his white count was 7400, hemoglobin 15.1, hematocrit 33.5, platelet count 270. His BUN and creatinine were within normal limits. CAT scan of his abdomen and pelvis revealed a distended bladder. Bilateral kidney stones were seen. They were nonobstructing. There was mild dilation of the right renal pelvis. There was also some proximal right ureteral dilation. Stone was not seen. This is probably secondary to recent passage of a stone. Bladder revealed thickening of the detrusor muscle. The prostate was enlarged. There were also fat-containing right and left inguinal hernias. No aneurysms were seen. The patient had cultures performed, which are not ready. His CBC today reveals a white count of 7000 with a hemoglobin 13.7, hematocrit 40.4, BUN 16, creatinine 0.9. The patient's urinalysis is negative for blood. Specific gravity is 1010. PH is 6. IMPRESSION: 1. History of urolithiasis. 2. History of prostatism. PLAN: The patient has been on Flomax 0.4 mg daily. His urine should be strained while he is in the hospital. He should have a repeat renal and pelvic ultrasound prior to discharge to rule out persistence of the hydronephrosis. We will follow as an outpatient. BONIFACIO ROSAS M.D. [id number]
[2016-12-15] MEDS ORDERED: ATORVASTATIN CA 20 MG TABLET (FP) PO SCH (22:00)
[2016-12-15] MEDS: morphine CARPU-JECT 2 MG/1 ML DISP.SYRIN IVPUSH PRN (22:39)
[2016-12-15] MEDS: ATORVASTATIN CA 10 MG TABLET (FP) PO SCH (22:39)
[2016-12-16] MEDS: SODIUM CHLORIDE 1,000 ML IV SCH ×3 (05:41→13:40)
[2016-12-16 09:11] LABS: CALCIUM 8.5 mg/dL (8.5-10.1); CREATININE 0.8 mg/dL (0.7-1.3)
[2016-12-16] MEDS ORDERED: KETOROLAC TROMETHAMINE 15 MG/ML VIAL IVPUSH STA (10:02)
--- NOTE | 2016-12-16 10:03 | PN ---
Progress Note, Physician - Current Medication List Current Medications: Active Medications Aspirin (Ecotrin -) [address] [facility] Last Admin: 12/15/16 09:53 Dose: 81 mg Atorvastatin Calcium (Lipitor -) [address] [facility] Last Admin: 12/15/16 22:39 Dose: 10 mg Enoxaparin Sodium (Lovenox -) [address] [facility] Last Admin: 12/15/16 09:53 Dose: 40 mg Sodium Chloride (Normal Saline -) 1,000 mls @ 100 mls/hr IV ASDIR [facility] Last Admin: 12/16/16 05:42 Dose: 100 mls/hr Morphine Sulfate (Morphine Injection -) 2 mg IVPUSH Q4H PRN PRN Reason: PAIN Last Admin: 12/15/16 22:39 Dose: 2 mg Nitroglycerin (Nitrostat -) 0.4 mg SL Q5M PRN PRN Reason: FOR CHEST PAIN - Objective Vital Signs: Vital Signs Temperature 97.9 F 12/16/16 02:00 Pulse Rate 68 12/16/16 02:00 Respiratory Rate 20 12/16/16 02:00 Blood Pressure 126/78 12/16/16 02:00 O2 Sat by Pulse Oximetry (%) 98 12/15/16 20:37 Constitutional: Yes: Well Nourished, No Distress, Calm Eyes: Yes: WNL, Conjunctiva Clear HENT: Yes: WNL, Atraumatic, Normocephalic Neck: Yes: WNL, Supple, Trachea Midline Cardiovascular: Yes: WNL, Regular Rate and Rhythm Respiratory: Yes: WNL, Regular, CTA Bilaterally Gastrointestinal: Yes: WNL, Normal Bowel Sounds Genitourinary: Yes: CVA Tenderness - Left, CVA Tenderness - Right Musculoskeletal: Yes: WNL Extremities: Yes: WNL Edema: No Integumentary: Yes: WNL Neurological: Yes: WNL, Alert, Oriented ...Motor Strength: WNL Psychiatric: Yes: WNL Labs: CBC, BMP 12/15/16 05:36 12/16/16 05:55 INR, PTT INR 1.12 (0.82-1.09) 12/14/16 18:30 Impression/Plan Impression/Plan: 61 year old man with CAD s/p stent in 2003 lost to follow up, Kidney stone (12 yrs ago) admitted for nephrolithiasis Nephrolithiasis -non-obstructing stones seen with mild dilation on the right indicating possible recent passage of obstructing stone -still having B/L flank pain with radiation to the groin -urology consult appreciated -cont tamsulosin -cont IVF CAD -has very mildly elevated trop with no acute ischemic changes on EKG and no events on telemetry -cardiology consult greatly appreciated; agree that pt does not need emergent stress test at this time -follow up echo -no beta armin needed at this time as pt is bradycardic and BP is borderline -cont ASA -cont statin Visit type - Emergency Visit Emergency Visit: Yes ED Registration Date: 12/14/16 Care time: The patient presented to the Emergency Department on the above date and was hospitalized for further evaluation of their emergent condition. - New Patient This patient is new to me today: No - Critical Care Critical Care patient: No
[2016-12-16] MEDS: ASPIRIN COATED 81 MG TABLET.EC PO SCH ×2 (10:04→10:25)
[2016-12-16] MEDS: ENOXAPARIN NA (PORCINE) 40 MG/0.4 ML DISP.SYRIN SQ SCH (10:04)
[2016-12-16] MEDS: morphine CARPU-JECT 2 MG/1 ML DISP.SYRIN IVPUSH PRN ×3 (10:05→21:23)
--- NOTE | 2016-12-16 10:21 | PN ---
Physical Exam: SUBJECTIVE: Patient seen and examined at bedside. Continues to have lower back/ flank pain radiating to groin bilaterally. Denies passing stone, denies dysuria. No stones noted in strainer for urine. Denies N/V/F/C. Is having difficulty ambulating from pain. OBJECTIVE: Vital Signs Temperature 98.2 F 12/16/16 10:00 Pulse Rate 66 12/16/16 10:00 Respiratory Rate 18 12/16/16 10:00 Blood Pressure 104/65 12/16/16 10:00 O2 Sat by Pulse Oximetry (%) 98 12/15/16 20:37 GENERAL: Patient comfortably lying in bed, Awake, alert, and fully oriented, in no acute distress. HEAD: Normal with no signs of trauma. EYES: EOM intact, no pallor or icterus EARS, NOSE, THROAT: Moist mucous membranes. NECK: Normal range of motion, supple without lymphadenopathy LUNGS: Breath sounds equal, clear to auscultation bilaterally. No wheezes, and no crackles. No accessory muscle use. HEART: Regular rate and rhythm, normal S1 and S2 without murmur, rub or gallop. ABDOMEN: Soft, tenderness over the suprapubic region, not distended, normoactive bowel sounds, no guarding, no rebound, no masses. No hepatomegaly or splenomegaly. B/L CVA tenderness. MUSCULOSKELETAL: Normal range of motion at all joints. No bony deformities or tenderness. LOWER EXTREMITIES: 2+ pulses, warm, well-perfused. No calf tenderness. No peripheral edema. NEUROLOGICAL: Normal speech. Gait not observed. PSYCHIATRIC: Cooperative. Good eye contact. Appropriate mood and affect. SKIN: Warm, dry, normal turgor, no rashes or lesions noted. Laboratory Results - last 24 hr 12/16/16 05:55 Sodium 144 Potassium 4.0 Chloride 108 H Carbon Dioxide 28 Anion Gap 8 BUN 12 D Creatinine 0.8 Random Glucose 79 Calcium 8.5 Urine Test Results Urine Color Straw 12/14/16 18:24 Urine Appearance Clear 12/14/16 18:24 Urine pH 6.0 (5.0-8.0) 12/14/16 18:24 Ur Specific [place] 1.010 (1.001-1.035) 12/14/16 18:24 Urine Protein Negative (NEGATIVE) 12/14/16 18:24 Urine Glucose (UA) Negative (NEGATIVE) 12/14/16 18:24 Urine Ketones Negative (NEGATIVE) 12/14/16 18:24 Urine Blood Negative (NEGATIVE) 12/14/16 18:24 Urine Nitrite Negative (NEGATIVE) 12/14/16 18:24 Urine Bilirubin Negative (NEGATIVE) 12/14/16 18:24 Ur Leukocyte Esterase Negative (NEGATIVE) 12/14/16 18:24 Imaging: Abdomen/ Pelvis CT (12/14/16): Impression: Tiny nonobstructing left and right renal stone. Mild dilatation of the right renal pelvis and proximal right ureter without gross evidence of a ureteral stone. Cannot rule out recent passage of a stone. Slightly over distended urinary bladder without wall thickening or intraluminal stones. Gallstones Enlarged prostate gland. Fat-containing right and left inguinal hernia. There is no evidence of aneurysmal dilatation of the abdominal aorta. Active Medications Generic Name Dose Route Start Last Admin Trade Name Freq PRN Reason Stop Dose Admin Aspirin 81 mg 12/15/16 10:00 12/16/16 10:04 Ecotrin - PO 81 mg DAILY [facility] Administration Atorvastatin Calcium 10 mg 12/14/16 23:50 12/15/16 22:39 Lipitor - PO 10 mg HS [facility] Administration Enoxaparin Sodium 40 mg 12/14/16 10:00 12/16/16 10:04 Lovenox - SQ 40 mg DAILY [facility] Administration Sodium Chloride 1,000 mls @ 100 mls/hr 12/14/16 23:45 12/16/16 05:42 Normal Saline - IV 100 mls/hr ASDIR [facility] Administration Morphine Sulfate 2 mg 12/15/16 10:05 12/15/16 22:39 Morphine Injection - IVPUSH 2 mg Q4H PRN Administration PAIN Nitroglycerin 0.4 mg 12/14/16 23:37 Nitrostat - SL Q5M PRN FOR CHEST PAIN ASSESSMENT/PLAN: 61 y/o M w/sig PMH of CAD, kidney stones 12 years ago presented to ER with c/o low back pain. Admitted for renal colic secondary to nephrolithiasis most likely. -Nephrolithiasis -Hx of renal stones, UA negative, afebrile, back pain/flank pain radiating to groin. -Pyelonephritis less likely -CT abd (12/14/16): Tiny nonobstructing left and right renal stone. Mild dilatation of the right renal pelvis and proximal right ureter without gross evidence of a ureteral stone. Cannot rule out recent passage of a stone. -NS@100 ml/hr -Urology consulted -Pain control w/morphine iv 2mg q4h prn -toradol 15 mg IV one time ordered -BPH -as seen CT abd -c/w flomax (was started on admission) -Chest pain -no CP currently, agree w/ cardio - unlikely to be ACS -stress test as outpatient once kidney stone issue resolved -Echo: LVSF normal, mild MR, mod to severe TR, RVSP elevated at 30-40 mmHg, mild pulmonic valve regurg, mod mitral annular calcification. -EKG from ER: sinus vilma, RBBB, L anterior fascicular block -Cardio on board -FEN -NS@100ml/hr -f/u electrolytes in AM, mild hypercholeremia currently -cholesterol/fat controlled diet -DVT ppx -lovenox 40 mg sq qd -Dispo: -Monitor on floors. -Needs PCP and car washer upon discharge. Problem List - Problems (1) Kidney stones Code(s): N20.0 - CALCULUS OF KIDNEY (2) BPH (benign prostatic hyperplasia) Code(s): N40.0 - BENIGN PROSTATIC HYPERPLASIA WITHOUT LOWER URINRY TRACT SYMP (3) Chest pain Code(s): R07.9 - CHEST PAIN, UNSPECIFIED Visit type - Emergency Visit Emergency Visit: Yes ED Registration Date: 12/14/16 Care time: The patient presented to the Emergency Department on the above date and was hospitalized for further evaluation of their emergent condition. - New Patient This patient is new to me today: No - Critical Care Critical Care patient: No
--- NOTE | 2016-12-16 13:03 | PN ---
Progress Note (short form) - Note Progress Note: Pt. with bph and L.U.T.S. also b/l renal stones. c/o urinary frequency and nocturia x5, urine c/s is pending. chest pain is most likely not ACS. will workup pt as outpatient for nephrolithiasis and his prostatism. presently urologically ok for discharge.
--- NOTE | 2016-12-16 13:35 | PN ---
Progress Note (short form) - Note Progress Note: cc: flank pain b/l 2/2 kidney stones, cp. S: + dizziness on standing. no further cp, no sob, palps Current Medications Aspirin (Ecotrin -) 81 mg PO DAILY [facility] Last Admin: 12/16/16 10:25 Dose: Not Given Atorvastatin Calcium (Lipitor -) 10 mg PO HS [facility] Last Admin: 12/15/16 22:39 Dose: 10 mg Enoxaparin Sodium (Lovenox -) 40 mg SQ DAILY [facility] Last Admin: 12/16/16 10:04 Dose: 40 mg Sodium Chloride (Normal Saline -) 1,000 mls @ 100 mls/hr IV ASDIR [facility] Last Admin: 12/16/16 05:42 Dose: 100 mls/hr Morphine Sulfate (Morphine Injection -) 2 mg IVPUSH Q4H PRN PRN Reason: PAIN Last Admin: 12/15/16 22:39 Dose: 2 mg Nitroglycerin (Nitrostat -) 0.4 mg SL Q5M PRN PRN Reason: FOR CHEST PAIN Vital Signs - 24 hr 12/15/16 12/15/16 12/15/16 14:37 18:00 20:37 Temperature 98.2 F 97.9 F Pulse Rate 69 66 Respiratory 18 18 20 Rate Blood Pressure 96/57 100/64 O2 Sat by Pulse 98 Oximetry (%) 12/15/16 12/16/16 12/16/16 20:50 02:00 09:00 Temperature 97.9 F 97.9 F Pulse Rate 62 68 Respiratory 20 20 Rate Blood Pressure 105/66 126/78 O2 Sat by Pulse 98 Oximetry (%) 12/16/16 10:00 Temperature 98.2 F Pulse Rate 66 Respiratory 18 Rate Blood Pressure 104/65 O2 Sat by Pulse Oximetry (%) Intake & Output 12/14/16 12/15/16 12/16/16 12/17/16 07:59 07:59 07:59 07:59 Intake Total 700 3020 Output Total 1650 Balance 700 1370 Weight 154 lb nad no jvd rrr s1s2 no mrg ctabl nl eff aaox3 no le e/c/c abd nt nd pos bs pos dp pt no carotid bruits no jaundice diaphoresis CBC, BMP 12/15/16 05:36 12/16/16 05:55 echo: nl lv/rv. mod MAC 1+ MR, mod-sev TR. RVSP 30-40. bline ao root dilation. cxr: clear lungs ecg 12/14/16: sr, nl intervals, rbbb, no st changes, twi ii/avf, compared to prior ecg no sig change except for twi now in avf tele: sr/sb a/p: 61 m hx possible cad (no mi or stents, per pt he had cath approx 2003 and was told he didn't need stent), here with flank pain b/l, cp. flank pain, kidney stones: -cont ivfs -plans per primary team +/- cp, possible cad hx, positive troponin: -Pt denies hx of PA or stents, said he had cath approx 2003 and was told he didn 't need stent, no further cath/stress testing since -here with episode of atypical cp (one episode lasting seconds), no recurrence -ecg w/o sig change from prior. echo without rwma. -trop in borderline range (0.09) with flat trend and nl ck, not consistent with acs -would benefit from stress testing when acute kidney stone/flank pain issues resolved. inpt vs outpt depending on clinical course here -cont asa, no need for plavix at this time -was ordered for bb but holding due to low bp hypotension: -cont ivfs, hold coreg
[2016-12-16] MEDS: ATORVASTATIN CA 10 MG TABLET (FP) PO SCH (21:23)
[2016-12-17 05:57] VITALS: TEMP 97
[2016-12-17 08:46] LABS: CALCIUM 8.8 mg/dL (8.5-10.1)
[2016-12-17 08:49] LABS: CREATININE 0.8 mg/dL (0.7-1.3)
[2016-12-17 10:24] VITALS: BP 121/76; PULSE 71
[2016-12-17] MEDS: SODIUM CHLORIDE 1,000 ML IV SCH (10:25)
[2016-12-17] MEDS: morphine CARPU-JECT 2 MG/1 ML DISP.SYRIN IVPUSH PRN (10:26)
[2016-12-17] MEDS: ENOXAPARIN NA (PORCINE) 40 MG/0.4 ML DISP.SYRIN SQ SCH ×2 (10:31→13:28)
--- NOTE | 2016-12-17 13:13 | DS ---
Physical Examination Vital Signs: Vital Signs Temperature 97 F L 12/17/16 05:56 Pulse Rate 71 12/17/16 10:00 Respiratory Rate 22 12/17/16 10:00 Blood Pressure 121/76 12/17/16 10:00 O2 Sat by Pulse Oximetry (%) 98 12/17/16 09:00 Labs: CBC, BMP 12/15/16 05:36 12/17/16 05:50 Discharge Summary Reason For Visit: ACS Current Active Problems Acute coronary syndrome (Acute) BPH (benign prostatic hyperplasia) (Acute) Chest pain (Acute) Hospital Course: 61 year old man with CAD s/p stent in 2003 lost to follow up, Kidney stone (12 yrs ago) admitted for nephrolithiasis Nephrolithiasis -non-obstructing stones seen with mild dilation on the right indicating possible recent passage of obstructing stone -still having B/L flank pain with radiation to the groin -urology consult appreciated -cont tamsulosin -for outpatient follow up for lithotripsy this week CAD -has very mildly elevated trop with no acute ischemic changes on EKG and no events on telemetry -cardiology consult greatly appreciated; agree that pt does not need emergent stress test at this time -echo shows good EF with no wall motion abnormalities -no beta armin needed at this time as pt is bradycardic and BP is borderline -cont ASA -cont statin -to follow up with cardiology as an outpatient (stressed the importance of this to patient at the bedside) I spent greater than 40 minutes preparing this discharge - Instructions Referrals: Zari Phelan MD [Staff Physician] - 2 Weeks Alfonzo Chauhan MD [Staff Physician] - 1 Week Will Torres MD [Staff Physician] - 2 Weeks - Home Medications Comprehensive Discharge Medication List: Ambulatory Orders Acetaminophen W/ Codeine #3 [Tylenol # 3 -] 1 tab PO Q4H PRN #24 tablet MDD 6 tabs 12/17/16 Aspirin Coated [Ecotrin -] 81 mg PO DAILY #30 tablet.ec 12/17/16 Atorvastatin Ca [Lipitor] 10 mg PO HS #30 tablet 12/17/16 Docusate Sodium [Colace -] 100 mg PO DAILY #7 capsule 12/17/16 This patient is new to me today: No Emergency Visit: Yes ED Registration Date: 12/14/16 Care time: The patient presented to the Emergency Department on the above date and was hospitalized for further evaluation of their emergent condition. Critical Care patient: No - Discharge Referral Referred to [facility] No
--- NOTE | 2016-12-20 13:51 | EKG ---
Test Reason : Blood Pressure : / mmHG Vent. Rate : 066 BPM Atrial Rate : 066 BPM P-R Int : 142 ms QRS Dur : 142 ms QT Int : 434 ms P-R-T Axes : 040 -54 -10 degrees QTc Int : 454 ms NORMAL SINUS RHYTHM RIGHT BUNDLE BRANCH BLOCK LEFT ANTERIOR FASCICULAR BLOCK BIFASCICULAR BLOCK ABNORMAL ECG WHEN COMPARED WITH ECG OF 14-DEC-2016 19:32, NO SIGNIFICANT CHANGE WAS FOUND Confirmed by DOMINIK MANZANARES MD ([id number]) on 12/20/2016 1:51:35 PM Referred By: SASHA SERNA Confirmed By:DOMINIK MANZANARES MD
== END 2016-12-17 13:41 | disposition home or self-care (01) | DRG 694 ==
LOC: JER 15:52 → JERFT 15:52 → JERBED 23:04 → J4W 12-15 01:04
PROVIDERS: ADMIT Internal Medicine; ATTEND Internal Medicine
DX: N20.0 Calculus of kidney (principal); I24.9 Acute ischemic heart disease, unspecified; M54.5 Low back pain; I25.10 Atherosclerotic heart disease of native coronary artery without angina pectoris; N40.0 Benign prostatic hyperplasia without lower urinary tract symptoms; I45.19 Other right bundle-branch block; Z87.442 Personal history of urinary calculi; Z95.5 Presence of coronary angioplasty implant and graft
CPT/HCPCS: 36415; 71010-TC; 74176-TC; 80048; 80053; 80061; 81003; 82550; 83036; 83721; 84484; 85025; 85027; 85610; 86850; 86900; 86901; 93005; 93010; 93306-TC; 99283-25

== ENCOUNTER 2022-02-06 07:08 | Emergency (ER) | payer OTHER ==
[2022-02-06 07:26] VITALS: TEMP 97.9; BMI 24.9
[2022-02-06] MEDS ORDERED: KETOROLAC TROMETHAMINE 30 MG/1 ML VIAL IVPUSH ONE (07:42)
[2022-02-06] MEDS ORDERED: ACETAMINOPHEN 500 MG TABLET (FP) PO ONE (07:43)
[2022-02-06] MEDS ORDERED: LIDOCAINE 5% TOPICAL PATCH TP ONE (07:46)
[2022-02-06] MEDS ORDERED: SODIUM CHLORIDE 0.9% 500 ML INFUS.BAG IV ONE (07:49)
[2022-02-06] MEDS ORDERED: morphine CARPU-JECT 4 MG/1 ML DISP.SYRIN IVPUSH ONE (07:49)
[2022-02-06] MEDS ORDERED: morphine SULFATE 4 MG/ML VIAL ONE (07:57)
[2022-02-06] MEDS ORDERED: LIDOCAINE 5% TOPICAL PATCH ONE (07:57)
[2022-02-06 08:28] LABS: URINE APPEARANCE CLEAR; URINE BILIRUBIN NEGATIVE (NEGATIVE); URINE COLOR YELLOW; URINE GLUCOSE (UA) NEGATIVE (NEGATIVE); URINE KETONE NEGATIVE (NEGATIVE); URINE LEUK ESTERASE NEGATIVE (NEGATIVE); URINE NITRITE NEGATIVE (NEGATIVE); URINE PROTEIN NEGATIVE (NEGATIVE); URINE UROBILINOGEN 0.2 mg/dL (0.2-1.0)
[2022-02-06 08:33] LABS: BASO % 0.6 % (0-2.0); EOS % 1.7 % (0-4.5); HEMATOCRIT 46.1 % (35.4-49); HEMOGLOBIN 15.6 GM/dL (11.7-16.9); LYMPH % 37.2 % (8-40); MCH 30.7 pg (25.7-33.7); MCHC 33.9 g/dl (32.0-35.9); MEAN CELL VOLUME 90.5 fl (80-96); MEAN PLT VOLUME 8.2 fl (7.5-11.1); MONO % 7.3 % (3.8-10.2); NEUT % 53.2 % (42.8-82.8); PLATELET COUNT 280 10^3/uL (134-434); RDW 13.1 % (11.9-15.9); WHITE BLOOD COUNT 7.1 K/mm3 (4.0-10.0)
[2022-02-06 08:40] LABS: CALCIUM 9.5 mg/dL (8.5-10.1)
[2022-02-06 08:41] LABS: BLOOD UREA NITROGEN 27.2 mg/dL (7-18)
[2022-02-06 08:46] LABS: BILIRUBIN,TOTAL 0.6 mg/dL (0.2-1); TOT PROT 7.6 g/dl (6.4-8.2)
[2022-02-06] MEDS ORDERED: diazePAM 5 MG TABLET PO ONE (11:49)
[2022-02-06] MEDS ORDERED: diazePAM 5 MG TABLET ONE (11:53)
[2022-02-06 13:12] VITALS: BP 137/88; PULSE 76
[2022-02-06] MEDS ORDERED: LIDOCAINE PATCH REMOVAL MC ONE (22:00)
== END 2022-02-06 13:10 | disposition home or self-care (01) ==
LOC: JER 07:08
PROC: 3E033NZ Introduction of Analgesics, Hypnotics, Sedatives into Peripheral Vein, Percutaneous Approach (ICD-10-PCS; principal; 2022-02-06)
DX: M54.50 Low back pain, unspecified (principal)
CPT/HCPCS: 36415; 72131-TC; 74177-TC; 80053; 81003; 85025; 87086; 99285-25